=== PATIENT | female | born 1995 | race African-American/Black ===

== ENCOUNTER 2024-03-14 08:00 | Outpatient (CLI) | payer OTHER, SELFPAY ==
--- NOTE | ~2024-03-14 | US_ITS ---
EXAMINATION: US OB <=14 wk fetus w TV DATE: 03/14/2024 08:41 INDICATION: Amenorrhea during first trimester . TECHNIQUE: Real-time pelvic ultrasound utilizing both a transvaginal and transabdominal probe was pe rformed. The interpreting radiologist was not present for the study. COMPARISON: None. FINDINGS: The uterus measures 8.3 x 4.4 x 5.5 cm. There is an intrauterine gestational sac. A 5 mm yolk sac is identified but there is no discernible pole. The mean sac diameter measures 1.8 cm, which stephan elates with an estimated gestational age of 6 weeks and 5 days. 6 x 5 x 4 mm hypoechoic very small benton bchorionic hematoma along the caudal margin of the gestational sac. Trace amount of anechoic fluid in the endocervical canal. The right ovary measures 3.4 x 2.3 x 2.0 cm. And 2.2 x 1.5 x 1.5 cm thick-walled centrally anechoic c orpus luteum cyst in the right ovary. The left ovary measures 4.3 x 3.1 x 2.5 cm. Vascular flow ident ified in both ovaries on color Doppler. There is a very small amount of anechoic free fluid in the cu l-de-sac. IMPRESSION: 1. Single 1.8 cm diameter intrauterine gestational sac with yolk sac but no discernible pole wh ich could is concerning for but not diagnostic for failed . Consider follow-up serial beta-h CG levels and follow-up imaging for confirmation of viability and more accurate dating of pregn robinson as clinically indicated. 2. Gestational age by ultrasound based upon mean sac diameter of 6 weeks 5 day(s) +/- 4 day(s) with ultrasound estimated date of delivery (RIGO) of 11/02/2024. 3. Very small subchorionic hematoma. Reviewed, dictated and finalized at location A. EANT OF OFFICERS IMPRESSION: 1. Single 1.8 cm diameter intrauterine gestational sac with yolk sac but no dis cernible pole which could is concerning for but not diagnostic for failed . Consider follow-up serial beta-hCG levels and follow-up imaging for confirmation of viability and more accurate dating of as clini david indicated. 2. Gestational age by ultrasound based upon mean sac diameter of 6 weeks 5 day (s) +/- 4 day(s) with ultrasound estimated date of delivery (RIGO) of 11/02/2024. 3. Very small subchorionic hematoma.
== END 2024-03-14 08:01 | disposition home or self-care (01) ==
LOC: ANHIMG 08:01
PROVIDERS: Visit Provider Nurse Practitioner Obstetrics & Gynecology
DX: N91.2 Amenorrhea, unspecified (principal); O41.8X11 Other specified disorders of amniotic fluid and membranes, first trimester, fetus 1; Z3A.00 Weeks of gestation of pregnancy not specified
CPT/HCPCS: 76801; 76817

== ENCOUNTER 2024-03-29 14:25 | Outpatient (CLI) | payer OTHER, SELFPAY | END 2024-03-29 14:26 | disposition home or self-care (01) | LOC: ANHOBOP 14:33 | PROVIDERS: Nurse Practitioner Obstetrics & Gynecology; Visit Provider Obstetrics & Gynecology | DX: Z34.90 Encounter for supervision of normal pregnancy, unspecified, unspecified trimester (principal); Z3A.00 Weeks of gestation of pregnancy not specified | CPT/HCPCS: 36415; 84702 ==

== ENCOUNTER 2024-04-21 13:12 | Outpatient (CLI) | payer OTHER, SELFPAY ==
--- NOTE | ~2024-04-21 | US_ITS ---
EXAMINATION: US OB <=14 wk fetus w TV DATE: 04/21/2024 14:58 INDICATION: Threatened TECHNIQUE: Real-time pelvic ultrasound utilizing both a transvaginal and transabdominal probe was pe rformed. The interpreting radiologist was not present for the study. COMPARISON: None. FINDINGS: The uterus measures 7.4 x 3.8 x 5.0 cm. The endometrial complex is thickened to 1.6 cm. No intrauter ine gestational sac. The right ovary measures 3.5 x 2.1 x 1.2 cm. The left ovary measures 3.7 x 1.6 x 1.4 subcentimeter. Simple appearing anechoic 1.8 cm left ovarian cyst/follicle. Vascular flow with a rterial waveforms identified at both ovaries on color Doppler. There is a trace amount of anechoic fr ee fluid in the cul-de-sac. IMPRESSION: 1. Thickened endometrial complex with no intrauterine gestational sac. Differential would include ear ly, failed or ectopic . Reviewed, dictated and finalized at location A. PAINTER IMPRESSION: 1. Thickened endometrial complex with no intrauterine gestational sac. Differen tial would include early, failed or ectopic .
--- OUTSIDE RECORDS SUMMARY | 2024-04-21 13:23 | XMS_ITS | Encounter Summary ---
Author Organization [facility] Address [address] [place] [address] Phone Care Team Providers Care Entry Level Buyer Name Role Phone Patt Bruce LEVEL GLASS VIAL FILLER, AUTOMOBILE WRECKER Primary Care Provider + Vero Wilson MD Unavailable Reason for Visit * Reason Comments Medication Refill Encounter Details Date Type Department Care Team (Late st Contact Info) Description 08/13/2023 Refill [facility] [address] [place] [address] Patt Bruce, LEVEL GLASS VIAL FILLER, AUTOMOBILE WRECKER [address] [place] [address] Medication Refill Social History Tobacco Use Types Packs/Day Years Used Date Smoking Tobacco: Never Smokeless Tobacco: Never Alcohol Use Standard Drinks/Week Comments Yes 1 (1 standard drink = 0.6 oz pur e alcohol) PHQ-2 Answer Date Recorded Total Score - Questions 1-9 0 12/18 Sexually Active Control Partners Comments Yes Male Comments No Sex and Gender Information Value Date Recorded Sex Assigned at Not on file Legal Sex Female 10:56 AM CDT Gender Identity Not on file Sexual Orientation Not on file documented as of this encounter Miscellaneous Notes * Telephone Encounter - Neelam Case RN - 08/13/2023 10:17 AM CDT Medication(s) refilled and signed per [facility] Chronic Medication Refill Standing Order for Pediatricand Adult Patients. Requested Prescriptions Pending Prescriptions Disp Refills Continuous Glucose Transmitter (Dexcom G6 Transmitter) Misc [Pharmacy Med Name: DEXCOM G6 TRANSMITTER] 1 Each 0 Sig: USE TO MONITOR BLOOD SUGAR LEVELS THROUGHOUT THE DAY DIRECTED Diabetic Supplies Protocol Passed - 08/13/2023 8:01 AM Passed - Visit with relevant provider in past 6 months Recent Visits Date Type Provider Dept 05/28/23 Office Visit Patt Bruce APRN, FELEC[place] [facility] [place] Showing recent visits within past 182 days and meeting all other requirements Future Appointments Date Type Provider Dept 08/16/23 Appointment Patt Bruce APRN, FELECIA [facility] Front Desk Admin [place] Showing future appointments within next 90 days and meeting all other requirements documented in this encounter Plan of Treatment Upcoming Encounters Date Type Department Care Team (Late st Contact Info) Description 05/06/2024 2:15 PM ACCOUNTS PAYABLE OR RECEIVABLE CLERK Office Visit [facility] - [facility] - [place] [address] [place] [address] Vero Wilson MD [address] [address] documented as of this encounter Visit Diagnoses Diagnosis Type 1 diabetes mellitus with retinopathy, macular edema presence unspecified, unspecified laterality, unspecified retinopathy severity (HCC) documented in this encounter Additional Health Concerns Assessment Noted Time PHQ-9 Depression Total Score: 0 01/16/20 23 11:00 AM CDT documented as of this encounter Care Teams Entry Level Buyer Relationship Specialty Start Date End Date Patt Bruce APRN, FELECIA [address] [place] [address] PCP - General Advanced Practice Nurse 01/15/23 Vero Wilson MD [address] [address] Consulting Physician Endocrinology 04/04/23 documented as of this encounter
--- OUTSIDE RECORDS SUMMARY | 2024-04-21 13:23 | XMS_ITS | Clinical Summary ---
Author Organization [facility] Address [address] [place] [address] Phone Care Team Providers Care Assembler Engine Name Role Phone Patt Bruce APRN, GENERAL FOREMAN Primary Care Provider + Vero Wilson MD Unavailable Allergies Active Allergy Reactions Criticality Noted Date Comments Penicillins Hives Low 02/09/2019 Medications Glucose Blood (Accu-Chek Guide) Strip 1 Strip by Other route. 1 Active insulin lispro (HumaLOG) 100 UNIT/ML Solution USE UP TO 60 UNITS IN PUMP DIALY DIRECTED 10 mL 2 3 Active insulin glargine (Lantus SoloStar) 100 UNIT/ML Solution Pen-injector 12 Units by Subcutaneous route nightly. 15 mL 1 4 Active Insulin Pen Needle (Pen [place]) 32G X 4 MM Misc Up to 4 times a day 100 Each 1 4 Active Insulin Lispro, 1 Unit Dial, 100 UNIT/ML Solution Pen-injector INJECT ICR OF 1:14 AND ISF OF 1:45 BEFORE EACH MEAL IF INSULIN PUMP DOES NOT WORK 15 mL 1 4 Active Continuous Glucose Sensor (Dexcom G6 Sensor) MiscIndications :Type 1 diabetes mellitus with retinopathy, macular edema presence unspecified, unspecified laterality, unspecified retinopathy severity (HCC) Use to check blood glucose. Change every 10 days. 9 Each 1 4 Active Insulin Disposable Pump (Omnipod 5 [id number] Pods Gen 5) MiscIndications :Type 1 diabetes mellitus with retinopathy, macular edema presence unspecified, unspecified laterality, unspecified retinopathy severity (HCC) Apply 1 pod to skin and change every 3 days as directed 30 Each 1 4 Active Continuous Glucose Transmitter (Dexcom G6 Transmitter) MiscIndications :Type 1 diabetes mellitus with retinopathy, macular edema presence unspecified, unspecified laterality, unspecified retinopathy severity (HCC) USE TO MONITOR BLOOD SUGAR LEVELS THROUGHOUT THE DAY DIRECTED 1 Each 2 4 Active Active Problems Problem Noted Date Diagnosed Date Type 1 diabetes mellitus with retinopathy 2023 Encounters Date Type Department Care Team Description 01/31/2024 MyChart RX Renewal [facility] Obstetrics & Gynecology [facility] [address] [place] [address] Patt Bruce, DISTRICT LOSS PREVENTION MANAGER, GENERAL FOREMAN Medication Renewal Reviewed 01/31/2024 MyChart RX Renewal [facility] [place] [address] [place] [address] Patt Bruce, DISTRICT LOSS PREVENTION MANAGER, GENERAL FOREMAN Medication Renewal Reviewed 01/31/2024 MyChart RX Renewal [facility] [place] [address] [place] [address] Patt Bruce, DISTRICT LOSS PREVENTION MANAGER, GENERAL FOREMAN Medication Renewal Reviewed from Last 3 Months Immunizations Immunization Administration Dates Next Due DTAP VACCINE 12/15/1996 DTP Vaccine 03/05/1996,01/08/1996,1995 Hepatitis B Vaccine, Pediatric/adolescent 03/05/1996,1995,1995 Hib Vaccine,unspecified Formulation 11/18,03/05/1996,01/08/1996,1995 MMR Vaccine 09/16/1996 OPV 10/29/1997,01/08/1996,1995 Family History Medical History Relation Name Comments No Known Problems Brother No Known Problems Father No Known Problems Maternal Grandfather Cancer Maternal Grandmother Diabetes Maternal Grandmother Hypertension Maternal Grandmother Cerebral Anuerysm Mother Stroke Mother Heart Attack Paternal Grandfather Hypertension Paternal Grandmother No Known Problems Sister Relation Name Status Comments Brother Alive Father Alive Maternal Grandfather Alive Maternal Grandmother Mother Alive Paternal Grandfather Paternal Grandmother Sister Alive Social History Tobacco Use Types Packs/Day Years Used Date Smoking Tobacco: Never Smokeless Tobacco: Never Tobacco Cessation:Counseling Given: Not Answered Alcohol Use Standard Drinks/Week Comments Yes 1 [...] on file Sexual Orientation Not on file Last Filed Vital Signs Vital Sign Reading Time Taken Comments Blood Pressure 120/83 12/06/2023 10:44 AM CDT Pulse 82 12/06/2023 10:44 AM CDT Temperature 36.3 ??C (97.3 ??F) 12/06/2023 10:44 AM C DT Respiratory Rate 18 12/06/2023 10:44 AM CDT Oxygen Saturation 98% 12/06/2023 10:44 AM CDT Inhaled Oxygen Concentration - - Weight 71.7 kg (158 lb) 12/06/2023 10:44 AM CDT Height 160 cm (5' 3 ) 08/16/2023 2:06 PM CDT Body Mass Index 27.99 08/16/2023 2:06 PM CDT Plan of Treatment Upcoming Encounters Date Type Department Care Team (Late st Contact Info) Description 05/06/2024 2:15 PM WORKFORCE ADVISOR Office Visit [facility] - Endocrinology - [place] [address] [place] [phone] Vero Wilson MD [address] [address] Health Maintenance Due Date Last Done Comments Diabetes: Eye Exam 1995 Diabetes: Foot Exam 1995 Hepatitis C Virus (HCV) Screening 1995 DTaP/Tdap/Td Immunization (5 - Tdap) 09/05/2002 12/15/1996, 03/05/1996, 01/08/1996, Additional history exists Pneumococcal Immunization Combined (1 of 2 - PCV) 09/05/2014 Influenza Immunization (#1) 2023 SARS-COV-2 Immunization (1 - season) 2023 Diabetes: Nephropathy Screening 05/27/2024 05/28/2023 Diabetes: Hemoglobin A1c 06/04/2024 024, 06/05/2023, 05/28/2023, Additional history exists Respiratory Syncytial Virus (RSV) Immunization (Adult) (1 - 1-dose 75+ series) 09/05/2070 Hepatitis B Immunization Completed 996, 1995, 1995 Pap Smear Discontinued 04/21/2020 Meningococcal Immunization (ACWY) Aged Out No longer eligible based on patient's age to complete this topic Rotavirus Immunization Aged Out No lo nger eligible based on patient's age to complete this topic Procedures Procedure Name Priority Date/Time Associated Diagnosis Comments POCT GLYCOSYLATED HEMOGLOBIN Routine 12/06/2023 10:15 AM CDT Type 1 diabetes mellitus with retinopathy, macular edema presence unspecified, unspecified laterality, unspecified retinopathy severity (HCC) CMP (COMPREHENSIVE METABOLIC PANEL) Routine 05/28/2023 10:29 AM CDT Type 1 diabetes mellitus with retinopathy, macular edema presence unspecified, unspecified laterality, unspecified retinopathy severity (HCC) PATHOLOGY CYTOLOGY [facility] CONTACT REPRESENTATIVE 04/21/2020 12:00 AM WORKFORCE ADVISOR from Last 3 Months or Most Recently Relevant to Health Maintenance Results * (ABNORMAL) POCT GLYCOSYLATED HEMOGLOBIN (12/06/2023 10:15 AM CDT) HGB-A1C 7.3(A) 4 - 6 % Blood 12/06/2023 10:1 5 AM CDT us Vero Wilson MD POINT OF CARE TESTING (MANUAL) F inal Result * (ABNORMAL) CMP (COMPREHENSIVE METABOLIC PANEL) (05/28/2023 10:29 AM CDT) SODIUM 139 136 - 145 mmol/L 05/28/2023 12:[address] [facility] POTASSIUM 4.6 3.5 - 5.1 mmol/L 05/28/2023 12:40 PM CDT [facility] CHLORIDE 109(H) 98 - 107 mmol/L 05/28/2023 12:[address] [facility] CO2, VENOUS 23 22 - 30 mmol/L 05/28/2023 12:[address] [facility] ANION GAP 11.6 <18.0 mmol/L 05/28/2023 12:40 PM CDT [facility] GLUCOSE 154(H) 70 - 99 mg/dL 05/28/2023 12:40 PM CDT [facility] BUN 17 5 - 18 mg/dL 05/28/2023 12:40 PM CDT [facility] CREATININE, BLOOD 0.82 0.60 - 1.00 mg/dL 05/28/2023 12:40 PM CDT [facility] BUN/CREATININE RATIO 21(H) 12 - 20 ratio 05/28/2023 12:40 PM CDT [facility] TOTAL PROTEIN 6.8 6.3 - 8.2 g/dL 05/28/2023 12:40 PM CDT [facility] ALBUMIN 3.7 3.5 - 5.0 g/dL 05/28/2023 12:40 PM CDT [facility] A/G RATIO 1.2 1.0 - 2.2 05/28/2023 12:40 PM CDT [facility] CALCIUM 9.3 8.7 - 10.5 mg/dL 05/28/2023 12:40 PM CDT [facility] T BILI 0.2 0.2 - 1.2 mg/dL 05/28/2023 12:40 PM CDT [facility] SGOT (AST) 13 5 - 34 U/L 05/28/2023 12:40 PM CDT [facility] SGPT (ALT) 15 0 - 55 U/L 05/28/2023 12:[address] [facility] ALKALINE PHOSPHATASE 59 40 - 150 U/L 05/28/2023 12:[address] [facility] IS THE PATIENT REQUIRED TO BE FASTING? No 05/28/2023 12:[address] [facility] GFR, ESTIMATED >60 >=60 05/28/2023 12:[address] [facility] Comment: Creatinine Clearance is the preferred criteria for selecting drug dose adjustments in renally impaired patients. ??The GFR is provided as additional pertinent clinical information. GFR is reported in mL/min/1.73 sq m. Calculation based on the Chronic Kidney Disease Epidemiology Collaboration (CKD- EPI) equation refit without adjustment for race. GFR, EST. >60 >=60 024 12:[address] [facility] GFR, EST. NONAFRICAN >60 >=60 05/28/2023 12:[address] [facility] Blood Venipuncture / Unknown 05/28/2023 10:29 AM CDT 05/28/2023 10:29 AM CDT us Patt Bruce APRN, GENERAL FOREMAN CHEMISTRY ORDERABLES Fin al Result Performing Organization Address City/[facility]/ZIP Co de Phone Number [facility] [address] [place] [address] * PATHOLOGY CYTOLOGY [facility] CONTACT REPRESENTATIVE (04/21/2020 12:00 AM WORKFORCE ADVISOR) 04/21/2020 us Provider Scan PATHOLOGY/CYTOLOGY ORDERABLES Fi nal Result AP NON-INTERFACED REFERENCE LABORATORIES from Last 3 Months or Most Recently Relevant to Health Maintenance Insurance MEDICAID [facility] Care Teams Assembler Engine Relationship Specialty Start Date End Date Patt Bruce, DISTRICT LOSS PREVENTION MANAGER, GENERAL FOREMAN [address] [place] [address] PCP - General Advanced Practice Nurse 01/15/23 Vero Wilson MD [address] [phone] Consulting Physician Endocrinology 04/04/23
[2024-04-21 16:07] LABS: Beta HCG Quantitative 832.31 mIU/ML
== END 2024-04-21 13:13 | disposition home or self-care (01) ==
PROVIDERS: Visit Provider Obstetrics & Gynecology
DX: O03.9 Complete or unspecified spontaneous abortion without complication (principal); Z3A.00 Weeks of gestation of pregnancy not specified
CPT/HCPCS: 36415; 76801; 76817; 84702

== ENCOUNTER 2024-06-03 09:52 | Outpatient (CLI) | payer OTHER, SELFPAY ==
[2024-06-03 10:57] LABS: Beta HCG Quantitative 104.86 mIU/ML
--- OUTSIDE RECORDS SUMMARY | 2024-06-03 11:07 | XMS_ITS | Clinical Summary ---
Author Organization [facility] Address [address] [place] [address] Phone Care Team Providers Care Chemical Production Engineer Name Role Phone Patt Bruce APRN, VENEER DRIER Primary Care Provider + Vero Wilson MD [...] 1 4 Active Insulin Pen Needle (Pen [place]) 32G X 4 MM Misc Up to [...] 4 Active Insulin Disposable Pump (Omnipod 5 [id number] Pods Gen 5) MiscIndications :Type 1 diabetes [...] Encounters Date Type Department Care Team Description 06/03/2024 Telephone [facility] [place] [address] [place] [address] Patt Bruce, INJECTION MOLDING MACHINE OFFBEARER, VENEER DRIER Prior Authorization 06/01/2024 [facility]phone [facility] [place] [facility] [place] [address] Patt Bruce, INJECTION MOLDING MACHINE OFFBEARER, VENEER DRIER Prior Authorization 05/25/2024 Telephone [facility] [place] [address] [place] [address] Patt Bruce, INJECTION MOLDING MACHINE OFFBEARER, VENEER DRIER Prior Authorization from Last 3 Months Immunizations Immunization Administration [...] 82 12/06/2023 10:44 AM CDT Temperature 36.3 C (97.3 F) 12/06/2023 10:44 AM CDT Respiratory Rate 18 12/06/2023 10:44 AM CDT Oxygen Saturation 98% 12/06/2023 10:44 AM CDT Inhaled Oxygen Concentration - - Weight 71.7 kg (158 lb) 12/06/2023 10:44 AM CDT Height 160 cm (5' 3 ) 08/16/2023 2:06 PM CDT Body Mass Index 27.99 08/16/2023 2:06 PM CDT Plan of Treatment Upcoming Encounters Date Type Department Care Team (Late st Contact Info) Description 06/10/2024 8:15 AM CDT Office Visit [facility] - Endocrinology - [place] [address] [place] [phone] Vero Wilson MD #[address] [address] Health Maintenance Due Date Last Done Comments Diabetes: Eye Exam 1995 Diabetes: Foot Exam 1995 Hepatitis C Virus (HCV) Screening 1995 DTaP/Tdap/Td Immunization (5 - Tdap) 09/05/2002 12/15/1996, 03/05/1996, 01/08/1996, Additional history exists Pneumococcal Immunization Combined (1 of 2 - PCV) 09/05/2014 Pap Smear 04/21/2023 04/21/2020 Influenza Immunization (#1) 2023 SARS-COV-2 Immunization ( season) 2023 Diabetes: Nephropathy Screening 05/27/2024 05/28/2023 Diabetes: Hemoglobin A1c 06/04/2024 024, 06/05/2023, 05/28/2023, Additional history exists Respiratory Syncytial Virus (RSV) Immunization (Adult) (1 - 1-dose 75+ series) 09/05/2070 Hepatitis B Immunization Completed 996, 1995, 1995 Meningococcal Immunization (ACWY) Aged Out No longer [...] laterality, unspecified retinopathy severity (HCC) PATHOLOGY CYTOLOGY ITEM PROCESSOR 04/21/2020 12:00 AM SHIRT IRONER SUPERVISOR from Last 3 Months or Most Recently Relevant to Health Maintenance Results * (ABNORMAL) POCT GLYCOSYLATED HEMOGLOBIN (12/06/2023 10:15 AM CDT) HGB-A1C 7.3(A) 4 - 6 % Blood 12/06/2023 10:1 5 AM CDT Vero Wilson MD POINT OF CARE TESTING (MANUAL) F inal Result * (ABNORMAL) CMP (COMPREHENSIVE METABOLIC PANEL) (05/28/2023 10:29 AM CDT) SODIUM 139 136 - 145 mmol/L 05/28/2023 12:40 PM CDT [facility] POTASSIUM 4.6 3.5 - 5.1 mmol/L 05/28/2023 12:40 PM CDT [facility] CHLORIDE 109(H) 98 - 107 mmol/L 05/28/2023 12:40 PM CDT [facility] CO2, VENOUS 23 22 - 30 mmol/L 05/28/2023 12:40 PM CDT [facility] ANION GAP 11.6 <18.0 mmol/L 05/28/2023 12:40 PM CDT [facility] GLUCOSE 154(H) 70 - 99 mg/dL 05/28/2023 12:40 PM CDT [facility] BUN 17 5 - 18 mg/dL 05/28/2023 12:40 PM T [facility] CREATININE, BLOOD 0.82 0.60 - 1.00 mg/dL 05/28/2023 12:40 PM CDT [facility] BUN/CREATININE RATIO 21(H) 12 - 20 ratio 05/28/2023 12:40 PM CDT [facility] TOTAL PROTEIN 6.8 6.3 - 8.2 g/dL 05/28/2023 12:40 PM T [facility] ALBUMIN 3.7 3.5 - 5.0 g/dL 05/28/2023 12:40 PM T [facility] A/G RATIO 1.2 1.0 - 2.2 05/28/2023 12:40 PM CDT [facility] CALCIUM 9.3 8.7 - 10.5 mg/dL 05/28/2023 12:40 PM CDT [facility] T BILI 0.2 0.2 - 1.2 mg/dL 05/28/2023 12:40 PM CDT [facility] SGOT (AST) 13 5 - 34 U/L 05/28/2023 12:40 PM CDT [facility] SGPT (ALT) 15 0 - 55 U/L 05/28/2023 12:40 PM CDT [facility] ALKALINE PHOSPHATASE 59 40 - 150 U/L 05/28/2023 12:40 PM CDT [facility] IS THE PATIENT REQUIRED TO BE FASTING? No 05/28/2023 12:40 PM CDT [facility] GFR, ESTIMATED >60 >=60 05/28/2023 12:40 PM CDT [facility] Comment: Creatinine Clearance is the preferred criteria for selecting drug dose adjustments in renally impaired patients. The GFR is provided as additional pertinent clinical information. GFR is reported in mL/min/1.73 sq m. Calculation based on the Chronic Kidney Disease Epidemiology Collaboration (CKD- EPI) equation refit without adjustment for race. GFR, EST. >60 >=60 024 12:40 PM CDT [facility] GFR, EST. NONAFRICAN >60 >=60 05/28/2023 12:40 PM CDT [facility] Blood Venipuncture / Unknown 05/28/2023 10:29 AM CDT 05/28/2023 10:29 AM CDT us Patt Bruce APRN, CNP CHEMISTRY ORDERABLES Fin al Result [facility] [address] [place] [address] * PATHOLOGY CYTOLOGY ITEM PROCESSOR (04/21/2020 12:00 AM SHIRT IRONER SUPERVISOR) 04/21/2020 us Provider Scan PATHOLOGY/CYTOLOGY ORDERABLES Fi nal Result [facility] NON-INTERFACED REFERENCE LABORATORIES from Last 3 Months or Most Recently Relevant to Health Maintenance Insurance MEDICAID [facility] Care Teams Chemical Production Engineer Relationship Specialty Start Date End Date Patt Bruce, INJECTION MOLDING MACHINE OFFBEARER, VENEER DRIER [address] [place] [address] PCP - General Advanced Practice Nurse 01/15/23 Vero Wilson MD [address] [address] [address] Consulting Physician Endocrinology 04/04/23
--- OUTSIDE RECORDS SUMMARY | 2024-06-03 11:07 | XMS_ITS | Encounter Summary ---
Author Organization [facility] Address [address] [place] [address] Phone Care Team Providers Care Powder Press Operator Name Role Phone Patt Bruce FLASHER ADJUSTER, MARKETING PLANNING MANAGER Primary Care Provider + Vero Wilson MD Unavailable Reason for Visit * Reason Comments Medication Refill Encounter Details Date Type Department Care Team (Late st Contact Info) Description 08/13/2023 Refill [facility] - Family Medicine [facility] [address] [place] [address] Patt Bruce, FLASHER ADJUSTER, MARKETING PLANNING MANAGER [address] [place] [address] Medication Refill Social History Tobacco Use Types [...] AM CDT Medication([facility]) [facility] and [facility] Medication Refill Standing Order for Pediatricand [...] Visit Patt Bruce APRN, FELECIA [facility] [place] Showing recent visits within past 182 days and meeting all other requirements Future Appointments Date Type Provider Dept 08/16/23 Appointment Patt Bruce APRN, FELECIA [facility] [place] Showing future appointments within next 90 days and meeting all other requirements documented in this encounter Plan of Treatment Upcoming Encounters Date Type Department Care Team (Late st Contact Info) Description 06/10/2024 8:15 AM CDT Office Visit [facility] - Endocrinology - [place] [address] [place] [address] Vero Wilson MD [address] [address] documented as of this encounter Visit Diagnoses Diagnosis Type 1 diabetes mellitus with retinopathy, macular edema presence unspecified, unspecified laterality, unspecified retinopathy severity (HCC) documented in this encounter Additional Health Concerns Assessment Noted Time PHQ-9 Depression Total Score: 0 01/16/20 23 11:00 AM CDT documented as of this encounter Care Teams Powder Press Operator Relationship Specialty Start Date End Date Patt Bruce APRN, CNP [address] [place] [address] PCP - General Advanced Practice Nurse 01/15/23 Vero Wilson MD [address] [place] [address] Consulting Physician Endocrinology 04/04/23 documented as of this encounter
--- OUTSIDE RECORDS SUMMARY | 2024-06-03 11:07 | XMS_ITS | Encounter Summary ---
Author Organization [facility] Address [address] [place] [address] Phone Care Team Providers Care Milieu Coordinator Name Role Phone Patt Bruce APRN, LUNCH TRUCK DRIVER Primary Care Provider + Vero Wilson MD Unavailable Reason for Visit * Reason Onset Date Comments Prior Authorization 06/01/2024 Encounter Details Date Type Department Care Team (Late st Contact Info) Description 06/01/2024 Telephone [facility] - Family Medicine [facility] [address] [place] [address] Patt Bruce, LYNNE, LUNCH TRUCK DRIVER [address] [place] [address] Prior Authorization Social History Tobacco Use Types Packs/Day Years [...] encounter Miscellaneous Notes * Telephone Encounter - Shital Camarillo - 06/03/2024 9:41 AM CDT Submitted prior authorization to insurance. * Telephone Encounter - Patt Bruce APRN, FELECIA - 06/02/2024 10:59 AM CDT Okay for PA * Telephone Encounter - Shital Camarillo - 06/01/2024 4:52 PM CDT Insurance requiring a prior authorization on Dexcom G6 Transmitter, ok to proceed? documented in this encounter Plan of Treatment Upcoming Encounters Date Type Department Care Team (Late st Contact Info) Description 06/10/2024 8:15 AM CDT Office Visit [facility] - Endocrinology - [place] [address] [place] [address] Vero Wilson MD [address] [address] documented as of this encounter Visit Diagnoses Not on filedocumented in this encounter Additional Health Concerns Assessment Noted Time PHQ-9 Depression Total Score: 0 01/16/20 23 11:00 AM CDT documented as of this encounter Care Teams Milieu Coordinator Relationship Specialty Start Date End Date Patt Bruce APRN, FELECIA [address] [place] [address] PCP - General Advanced Practice Nurse 01/15/23 Vero Wilson MD [address] [phone] Consulting Physician Endocrinology 04/04/23 documented as of this encounter
--- OUTSIDE RECORDS SUMMARY | 2024-06-03 11:07 | XMS_ITS | Encounter Summary ---
Author Organization [facility] Address [address] [place] [address] Phone Care Team Providers Care Assistant Women'S Soccer Coach Name Role Phone Patt Bruce APRN, GREENHOUSE SUPERINTENDENT Primary Care Provider + Vero Wilson MD Unavailable Reason for Visit * Reason Onset Date Comments Prior Authorization 06/03/2024 Encounter Details Date Type Department Care Team (Late st Contact Info) Description 06/03/2024 Telephone [facility] - Family Medicine [facility] [address] [place] [address] Patt Bruce APRN, GREENHOUSE SUPERINTENDENT [address] [place] [address] Prior Authorization Social History Tobacco Use Types [...] encounter Miscellaneous Notes * Telephone Encounter - Patt Bruce APRN, GREENHOUSE SUPERINTENDENT - 06/03/2024 11:03 AM CDT Okay for PA * Telephone Encounter - Shital Camarillo - 06/03/2024 10:54 AM CDT Insurance requiring a prior authorization on Omnipod 5 dexcom G7/G6 pods, ok to proceed? documented in this encounter Plan of Treatment Upcoming Encounters Date Type Department Care Team (Late st Contact Info) Description 06/10/2024 8:15 AM CDT Office Visit [facility] - Endocrinology - [place] [address] [place] [address] Vero Wilson MD [address] [address] documented as of this encounter Visit Diagnoses Not on filedocumented in this encounter Additional Health Concerns Assessment Noted Time PHQ-9 Depression Total Score: 0 01/16/20 11:00 AM CDT documented as of this encounter Care Teams Assistant Women'S Soccer Coach Relationship Specialty Start Date End Date Patt Bruce APRN, FELECIA [address] [place] [address] PCP - General Advanced Practice Nurse 01/15/23 Vero Wilson MD [address] [phone] Consulting Physician Endocrinology 04/04/23 documented as of this encounter
== END 2024-06-03 09:53 | disposition home or self-care (01) ==
LOC: ANHLAB 09:53
PROVIDERS: Visit Provider Obstetrics & Gynecology
DX: O03.9 Complete or unspecified spontaneous abortion without complication (principal); Z3A.00 Weeks of gestation of pregnancy not specified
CPT/HCPCS: 36415; 84702